=== PATIENT | female | born 1965 | race Caucasian/White ===

== ENCOUNTER 2019-08-19 16:07 | Emergency (ER) | payer SELFPAY ==
[2019-08-19] MEDS ORDERED: OXYMETAZOLINE HCL 0.05% NASAL SPRAY 15 ML BOTTLE NASL ONE (16:20)
--- NOTE | 2019-08-19 16:24 | ER Document Report ---
ED Medical Screen (RME) - General Chief Complaint: Nose Bleed Stated Complaint: NOSE BLEED Time Seen by Provider: 08/19/19 16:12 Primary Care Provider: REMA VILLASEÑOR FNP-BC [Primary Care Provider] - Follow up as needed Notes: Patient is a 53-year-old female who presents emergency department with a chief complaint of nosebleed. Patient reports she was raking leaves in her yard when she developed a nosebleed about an hour and a half ago to the left nare. Patient reports she does have a history of nosebleeds with the last one being 10 years ago which did require cauterization. Patient reports it has been int ermittently bleeding and dripping blood for 90 minutes. Patient reports she is not on blood thinners but does take Aleve and ibuprofen regularly. Patient denies trauma. TRAVEL OUTSIDE OF THE [place] IN LAST 30 DAYS: No - Related Data Allergies/Adverse Reactions: Penicillins Allergy (Severe, Verified 08/19/19 16:14) rash and swelling Home Medications: ibuprofen. naproxen Past Medical History - Social History Chew tobacco use (# tins/day): No Frequency of alcohol use: None Drug Abuse: None - Past Medical History Cardiac Medical History: Reports: Hx Hypercholesterolemia Past Surgical History: Reports: Hx Cholecystectomy, Hx Orthopedic Surgery - right hand 3,4,5 reconstructiion - Immunizations Hx Diphtheria, Pertussis, Tetanus Vaccination: Yes Physical Exam - Vital signs Vitals: Temp Pulse Resp BP Pulse Ox 97.9 F 91 16 154/101 H 98 08/19/19 16:14 08/19/19 16:14 08/19/19 16:14 08/19/19 16:14 08/19/19 16:14 - HEENT Notes: oozing of blood noted to the left nare. Course - Re-evaluation Re-evalutation: 08/19/19 16:23 I have greeted and performed a rapid initial assessment of this patient. A comprehensive ED assessment and evaluation of the patient, analysis of test results and completion of the medical decision making process will be conducted by additional ED providers. - Vital Signs Vital signs: Temp Pulse Resp BP Pulse Ox 97.9 F 91 16 154/101 H 98 08/19/19 16:14 08/19/19 16:14 08/19/19 16:14 08/19/19 16:14 12/07/19 16:14 Doctor's Discharge - Discharge Referrals: REMA VILLASEÑOR, SUPERVISOR/PORT DIRECTOR-BC [Primary Care Provider] - Follow up as needed
--- NOTE | 2019-08-19 17:27 | ER Document Report ---
HPI - HPI Time Seen by Provider: 08/19/19 16:12 Pain Level: 0 Notes: Patient is a 53-year-old female no significant past medical history who presents complaining of having a nosebleed twice today on the left nare. Patient states that her blood earlier today and resolved on its own, but started back up again a few hours ago and was continuous until she got here. Patient states that she received Afrin at triage which resolved her nosebleed. Patient is otherwise fe eling well. Patient states that in the past she has had a nosebleed that needed cautery done to the same side. She is otherwise able to eat and drink without difficulty. She is urinating normally. No other concerns or complaints. She is not on any blood thinning medications. No injury. Denies any headache, fever, head injury, neck pain, changes in vision/speech/mentation/hearing, URI, sore throat, chest pain, palpitations, syncope, cough, shortness of breath, wheeze, dyspnea, abdominal pain, nausea/vomiting/diarrhea, urinary retention, dysuria, hematuria, or rash. - ROS Systems Reviewed and Negative: Yes All other systems reviewed and negative - REPRODUCTIVE Reproductive: DENIES: : Past Medical History - Social History Smoking Status: Current Every Day Smoker Chew tobacco use (# tins/day): No Frequency of alcohol use: None Drug Abuse: None Family History: Reviewed & Not Pertinent Patient has suicidal ideation: No Patient has homicidal ideation: No - Past Medical History Cardiac Medical History: Reports: Hx Hypercholesterolemia Past Surgical History: Reports: Hx Cholecystectomy, Hx Orthopedic Surgery - right hand 3,4,5 reconstructiion - Immunizations Hx Diphtheria, Pertussis, Tetanus Vaccination: Yes Vertical Provider Document - CONSTITUTIONAL Agree With Documented VS: Yes Notes: PHYSICAL EXAMINATION: GENERAL: Well-appearing, well-nourished and in no acute distress. HEAD: Atraumatic, normocephalic. EYES: Pupils equal round and reactive to light, extraocular movements intact, sclera anicteric, conjunctiva are normal. ENT: Nares patent and with scant dried bloody discharge to left nare. oropharynx clear without exudates or blood noted. No tonsilar hypertrophy or erythema. Moist mucous membranes. No sinus tenderness. NECK: Normal range of motion, supple without lymphadenopathy LUNGS: Breath sounds clear to auscultation bilaterally and equal. No wheezes ra les or rhonchi. HEART: Regular rate and rhythm without murmurs, rubs, gallops. ABDOMEN: Soft, nontender, nondistended abdomen. No guarding, no rebound. Normal bowel sounds present. No CVA tenderness bilaterally. Musculoskeletal: FROM to passive/active. Strength 5+/5. Extremities: No cyanosis, clubbing, or edema b/l. Peripheral pulses 2+. Capillary refill less than 3 seconds. NEUROLOGICAL: Cranial nerves grossly intact. Normal speech, normal gait. PSYCH: Normal mood, normal affect. SKIN: Warm, Dry, normal turgor, no rashes or lesions noted. - INFECTION CONTROL TRAVEL OUTSIDE OF THE [place] IN LAST 30 DAYS: No Course - Re-evaluation Re-evalutation: 08/19/19 17:24 Patient is an afebrile, well-hydrated, 53-year-old female who presents with a resolved nosebleed. Vitals are acceptable without significant tachycardia, tachypnea, hypoxia. PE is otherwise unremarkable. Patient is nontoxic- appearing and is tolerating p.o. without difficulty. Patient was given Afrin at triage which resolved her symptoms. No further work-up warranted at this time. I did thoroughly review nosebleed instructions with the patient. Low suspicion for any significant blood loss, sepsis, or other systemic emergent condition at this time. I feel that the patient is stable for discharge to home. She is to recheck with your PCM next week. Consider consult with ENT. Return to the ED with any other worsening/concerning symptoms. Patient is in agreement. - Vital Signs Vital signs: Temp Pulse Resp BP Pulse Ox 97.9 F 91 16 154/101 H 98 08/19/19 16:14 08/19/19 16:14 08/19/19 16:14 08/19/19 16:14 08/19/19 16:14 Discharge - Discharge Clinical Impression: Nosebleed Condition: Stable Disposition: HOME, SELF-CARE Additional Instructions: Nosebleed instructions as reviewed Maintain adequate fluid intake Recheck with your PCM in 3 to 5 days Consider consult with ENT Return to the ED with any worsening symptoms and/or development of fever, headache, changes in behavior/mentation/vision/speech, chest pain, palpitations, syncope, shortness of breath, trouble breathing, abdominal pain, n/v/d, blood in stool/urine, uncontrolled bleeding, dizziness, or other worsening symptoms that are concerning to you. Forms: Elevated Blood Pressure Referrals: REMA VILLASEÑOR FNP-BC [NO LOCAL MD] - Follow up as needed KAVITHA STANFORD DO [ASSOCIATE] - Follow up as needed
[2019-08-19 17:41] VITALS: BP 112/89
== END 2019-08-19 17:41 | disposition home or self-care (01) ==
LOC: ER 16:07
DX: R04.0 Epistaxis (principal); F17.200 Nicotine dependence, unspecified, uncomplicated
CPT/HCPCS: 99283; J3490